=== PATIENT | female | born 1955 | race Caucasian/White ===

== ENCOUNTER 2022-11-09 13:48 | Emergency (ER) | payer MEDICARE, OTHER ==
[~2022-11-09] VITALS: Ht 165.1 cm; Wt 102.1 kg
[2022-11-09 14:15] VITALS: BP 130/80
[2022-11-09 14:23] LABS: BASOPHILS # (AUTO) 0.1 K/uL (0.00-0.22); BASOPHILS % (AUTO) 0.6 % (0.0-2.0); EOSINOPHILS # (AUTO) 0.1 K/uL (0-0.4); EOSINOPHILS % (AUTO) 0.4 % (0.0-4.0); HEMATOCRIT 37.2 % (36-48); HEMOGLOBIN 12.3 g/dL (12.0-16.0); LYMPHOCYTES # (AUTO) 1.2 K/uL (2.5-16.5); LYMPHOCYTES % (AUTO) 9.1 % (20.5-51.1); MEAN CORPUSCULAR HEMOGLOBIN 27 pg (27-31); MEAN CORPUSCULAR HGB CONC 33 g/dL (33-37); MEAN CORPUSCULAR VOLUME 82.3 fL (80-94); MONOCYTES # (AUTO) 0.9 K/uL (0.8-1.0); MONOCYTES % (AUTO) 7.2 % (1.7-9.3); NEUTROPHILS # (AUTO) 10.7 K/uL (1.8-7.7); NEUTROPHILS % (AUTO) 82.7 % (42.2-75.2); PLATELET COUNT (AUTO) 389 K/uL (140-450); RED BLOOD CELL COUNT(AUTO) 4.52 MIL/uL (4.20-5.40); RED CELL DISTRIBUTION WIDTH 18.2 % (11.6-13.7); WHITE BLOOD COUNT (AUTO) 12.9 K/uL (4.8-10.8)
[2022-11-09 14:38] LABS: ANION GAP 19.5 (8-16); CARBON DIOXIDE 21.4 mmol/L (21-32); CREATININE 1.1 mg/dL (0.6-1.3); POTASSIUM 3.9 mmol/L (3.5-5.1)
--- NOTE | 2022-11-09 18:57 | NUR ---
pt w/c assist to bed 2.
--- NOTE | 2022-11-09 19:12 | NUR ---
Received report from KARY Ng and continue care of patient.
--- NOTE | 2022-11-09 19:24 | NUR ---
Patient reported, had abdominal pain, abscess for 6 weeks, no treatments and had COVID-19 last 2 weeks and felt weak and unable to walk at home. Hx DM
--- NOTE | 2022-11-09 19:42 | NUR ---
Dr. Lee examnining patient.
--- NOTE | 2022-11-09 20:10 | NUR ---
# 16 FR Villa catheter with 10 ml utilizing sterile technique. Immediate return of 200 ml yellow and cloudy urine noted. Bedside drainage bag placed below level of bladder. Urine sample collected and sent to lab. Pt tolerated procedure well.
--- NOTE | 2022-11-09 20:22 | NUR ---
Provided orange juice and water as reqest.
[2022-11-09 20:37] LABS: APPEARANCE,URINE SL CLOUDY (CLEAR); BILIRUBIN,URINE NEGATIVE (NEGATIVE); BLOOD, URINE 3+ (NEGATIVE); COLOR,URINE YELLOW (YELLOW); LEUKOCYTE ESTERASE ,URINE NEGATIVE (NEGATIVE); NITRITE, URINE POSITIVE (NEGATIVE); UGLUCOSE 3+ (NEGATIVE)
[2022-11-09] MEDS ORDERED: INSU500I SQ ×2 (20:46)
[2022-11-09] MEDS ORDERED: GABA100C PO (20:46)
[2022-11-09] MEDS ORDERED: ARIP5TAB8 PO (20:46)
[2022-11-09] MEDS ORDERED: DULO20EC PO (20:46)
[2022-11-09] MEDS ORDERED: EMPA10TA PO (20:46)
[2022-11-09] MEDS ORDERED: INSU500S1 IJ (20:46)
[2022-11-09] MEDS ORDERED: DABI75CA PO (20:46)
[2022-11-09] MEDS ORDERED: ATOR10TA PO (20:46)
--- NOTE | 2022-11-09 20:47 | NUR ---
Med-rec reviewed.
[2022-11-09 21:05] LABS: RBC,URINE 11-20 (MOD) /HPF (0-5); WBC,URINE 16-25 (MOD) /HPF (0-5)
[2022-11-09] MEDS ORDERED: cefTRIAXone 1,000 MG VIAL ONE (22:07)
--- NOTE | 2022-11-10 00:35 | NUR ---
Dr. Tellez examining patient.
[2022-11-10] MEDS ORDERED: ACETAMINOPHEN 325 MG TAB PO ONE (00:45)
--- NOTE | 2022-11-10 02:22 | NUR ---
Patient taken to CT scan via gurney.
[2022-11-10] MEDS ORDERED: INSULIN REGULAR, HUMAN 100 UNIT/ML VIAL SUBQ ONE (04:05)
--- NOTE | 2022-11-10 05:27 | NUR ---
Re-check BS 220, Dr. Tellez notified.
[2022-11-10 06:48] VITALS: BP 114/50
--- NOTE | 2022-11-10 06:55 | NUR ---
Patient to be transferred to [facility] . Is being transferred due to Insurance. Receiving facility has accepting physician and available space. ER physician has signed transfer form. Patient or responsible democrat has agreed to transfer and signed form. Patient belongings inventoried and will be sent with patient. Copy of nursing notes, lab reports, EKG, Physicians Orders and X-rays to be sent with patient. Report called to KARY Cota at receiving facility. [facility] service has been called for transfer. ETA is 45 minutes.
--- NOTE | 2022-11-10 07:39 | NUR ---
[facility] AT BEDSIDE FOR TRANSPORT
--- NOTE | 2022-11-12 16:41 | NUR ---
LATE ENTRY. RECEIVED POSITIVE URINE CULTURE RESULT. PT WAS TRANSFERRED TO [facility] THEN DISCHARGED TO [facility] THROUGH [facility]. SPOKE WITH NURSE AND FAXED FORM TO PTS PROVIDER AT [phone]. RECEIVED CONFIRMATION FAX.
== END 2022-11-10 07:39 | disposition short-term general hospital (02) ==
LOC: MED 13:48
DX: R53.1 Weakness (principal); Z20.822 Contact with and (suspected) exposure to COVID-19; N39.0 Urinary tract infection, site not specified; E11.65 Type 2 diabetes mellitus with hyperglycemia; E66.01 Morbid (severe) obesity due to excess calories; Z68.37 Body mass index [BMI] 37.0-37.9, adult; Z79.4 Long term (current) use of insulin; Z79.899 Other long term (current) drug therapy
CPT/HCPCS: 36415; 74177; 80048; 81001; 84484; 85025; 87040; 87086; 87426; 87804; 93005; 96365; 96372; 99285; J0696; J1815; Q9967

== ENCOUNTER 2023-06-06 12:21 | Emergency (ER) | payer MEDICARE ==
[~2023-06-06] VITALS: Ht 165.1 cm; Wt 158.8 kg
[~2023-06-06 12:21] MED LIST: ARIP5TAB8 PO; ATOR10TA PO; DABI75CA PO; DULO20EC PO; EMPA10TA PO; GABA100C PO; INSU500I SQ
[2023-06-06 12:24] VITALS: BP 141/46; PULSE 90; RESP 22; TEMP 99.9; O2SAT 96
--- NOTE | 2023-06-06 12:25 | NUR ---
PT BIBA/BLS TO BED 11
[2023-06-06] MEDS ORDERED: ONDANSETRON 4 MG/2 ML VIAL IVP ONE (12:40)
--- NOTE | 2023-06-06 12:41 | NUR ---
PT EVALUATED AT BS BY DR. MURRAY
[2023-06-06 13:18] LABS: BASOPHILS % (AUTO) 0.1 % (0.0-2.0); HEMOGLOBIN 11.5 g/dL (12.0-16.0); LYMPHOCYTES # (AUTO) 0.4 K/uL (2.5-16.5)
[2023-06-06 13:23] LABS: HEMATOCRIT 35.6 % (36-48); LYMPHOCYTES % (AUTO) 2.5 % (20.5-51.1); MEAN CORPUSCULAR HEMOGLOBIN 25 pg (27-31); MEAN CORPUSCULAR HGB CONC 32 g/dL (33-37); MEAN CORPUSCULAR VOLUME 78.8 fL (80-94); MONOCYTES # (AUTO) 0.9 K/uL (0.8-1.0); MONOCYTES % (AUTO) 5.9 % (1.7-9.3); NEUTROPHILS % (AUTO) 91.5 % (42.2-75.2); PLATELET COUNT (AUTO) 215 K/uL (140-450); RED BLOOD CELL COUNT(AUTO) 4.52 MIL/uL (4.20-5.40); RED CELL DISTRIBUTION WIDTH 19.3 % (11.6-13.7); WHITE BLOOD COUNT (AUTO) 15.3 K/uL (4.8-10.8)
[2023-06-06 13:28] LABS: PROTHROMBIN TIME 11.7 secs (10.8-13.4)
[2023-06-06 13:32] LABS: ANION GAP 16.1 (8-16); CARBON DIOXIDE 23.3 mmol/L (21-32); CREATININE 1.8 mg/dL (0.6-1.3); POTASSIUM 4.4 mmol/L (3.5-5.1); TOTAL BILIRUBIN 1.1 mg/dL (0.0-1.0)
[2023-06-06] MEDS ORDERED: ONDANSETRON 4 MG/2 ML VIAL ONE (13:48)
[2023-06-06] MEDS ORDERED: VANCOMYCIN 1,000 MG in DEXTROSE 5% 250 ML IV ONE (13:50)
[2023-06-06] MEDS ORDERED: PIPERACILLIN/TAZOBACTAM 3.375 GM in DEXTROSE 5% 50 ML IV ONE (13:50)
[2023-06-06] MEDS ORDERED: PIPERACILLIN/TAZOBACTAM 3.375 GM VIAL IV ONE (14:06)
[2023-06-06] MEDS ORDERED: NACL 0.9% 1,000 ML IV ONE ×2 (14:20→16:00)
[2023-06-06 14:26] LABS: APPEARANCE,URINE CLEAR (CLEAR); BILIRUBIN,URINE NEGATIVE (NEGATIVE); BLOOD, URINE TRACE-I (NEGATIVE); COLOR,URINE YELLOW (YELLOW); LEUKOCYTE ESTERASE ,URINE NEGATIVE (NEGATIVE); NITRITE, URINE POSITIVE (NEGATIVE); UGLUCOSE 3+ (NEGATIVE)
--- NOTE | 2023-06-06 14:34 | NUR ---
PT STATED, SHE IF FEELING BETTER.
[2023-06-06 14:35] LABS: RBC,URINE 0-5 /HPF (0-5); TRICHOMONAS,URINE None Seen /HPF (None Seen); YEAST,URINE None Seen /HPF (None Seen)
[2023-06-06] MEDS ORDERED: INSULIN REGULAR, HUMAN 100 UNIT/ML VIAL SUBQ ONE ×2 (14:40→17:05)
[2023-06-06] MEDS ORDERED: VANCOMYCIN 1,000 MG VIAL ONE (14:55)
--- NOTE | 2023-06-06 16:28 | NUR ---
COVID AND FLU SWABS DONE AND WALKED TO LAB
--- NOTE | 2023-06-06 19:09 | NUR ---
REPORT CALLED TO [facility]. REPORT GIVEN TO EVITA PRESTON. KYLE QUINTANILLA 193.
--- NOTE | 2023-06-06 19:26 | NUR ---
Pt report given to JAMEY PRESTON. Transfer of care at this time.
[2023-06-06] MEDS ORDERED: ACETAMINOPHEN 325 MG TAB PO ONE (19:45)
[2023-06-06 20:52] VITALS: TEMP 99.2
--- NOTE | 2023-06-06 21:30 | NUR ---
INQUIRED WITH [facility] TO FOLLOW-UP ON PATIENT TRANSPORT. PER [facility], ETA FOR [facility] IS 90 MINUTES. PATIENT IS AWAKE AND COMFORTABLE IN BED WITH VERBALIZED PAIN IMPROVEMENT AFTER MEDICATION INTAKE. NO SIGNS OF ACUTE DISTRESS AT THIS TIME. SIDE RAILS UP AND CALL LIGHT WITHIN REACH.
--- NOTE | 2023-06-06 22:01 | NUR ---
[facility] TRANSPORT AT BEDSIDE
[2023-06-06 22:28] VITALS: BP 109/37; PULSE 97; RESP 12; O2SAT 100
--- NOTE | 2023-06-06 22:28 | NUR ---
Patient to be transferred to [facility]. Is being transferred due to insurance request. Receiving facility has accepting physician and available space. ER physician has signed transfer form. Patient or responsible constitution party has agreed to transfer and signed form. Patient belongings inventoried and will be sent with patient. Copy of nursing notes, lab reports, EKG, Physicians Orders and X-rays to be sent with patient. Report called to KARY Shultz and KARY Raines at receiving facility. [facility] ambulance service has been called for transfer.
== END 2023-06-06 22:28 | disposition short-term general hospital (02) ==
LOC: MED 12:21
DX: A41.9 Sepsis, unspecified organism (principal); Z20.822 Contact with and (suspected) exposure to COVID-19; R65.20 Severe sepsis without septic shock; N17.9 Acute kidney failure, unspecified; R53.1 Weakness; E11.9 Type 2 diabetes mellitus without complications; E78.5 Hyperlipidemia, unspecified; Z79.4 Long term (current) use of insulin; Z79.899 Other long term (current) drug therapy
CPT/HCPCS: 36415; 36600; 71045; 80053; 81001; 82550; 82803; 82948; 83605; 83880; 84484; 85025; 85379; 85610; 85730; 87040; 87086; 87426; 87804; 93005; 96361; 96365; 96367; 96372; 96375; 99291; J1815; J2405; J2543; J3370; J7030; Q0092